=== PATIENT | female | born 1970 | race Caucasian/White ===

== ENCOUNTER 2017-01-19 12:27 | Emergency (ER) | payer OTHER ==
[~2017-01-19 12:27] MED LIST: ASPIRIN CHEWABL81 MG PO; CYANOCOBAL1000 MCG/M IM; LIPITOR20 MG PO; PLAVIX75 MG PO
[2017-01-19 14:12] LABS: AMPHETAMINES NEGATIVE (NEGATIVE); BARBITURATES NEGATIVE (NEGATIVE); BENZODIAZEPINES NEGATIVE (NEGATIVE); COCAINE NEGATIVE (NEGATIVE); MARIJUANA (THC) NEGATIVE (NEGATIVE); METHADONE NEGATIVE (NEGATIVE); TRICYCLIC ANTIDEPRESSANT NEGATIVE (NEGATIVE)
== END 2017-01-19 16:01 | disposition home or self-care (01) ==
LOC: FER 12:27
PROVIDERS: Internal Medicine
DX: M94.0 Chondrocostal junction syndrome [Tietze] (principal); I10 Essential (primary) hypertension; F17.210 Nicotine dependence, cigarettes, uncomplicated; Z86.73 Personal history of transient ischemic attack (TIA), and cerebral infarction without residual deficits; Z79.01 Long term (current) use of anticoagulants
CPT/HCPCS: 71120; 80305; 93005; J1885; J2270

== ENCOUNTER 2020-09-10 18:29 | Emergency (ER) | payer OTHER ==
[~2020-09-10 18:29] MED LIST changes: +ACETAMINOPHEN325 MG PO; +ALLEGRA ALLERG180 MG PO; +AMOXICILLIN500 MG PO; +BACTRIM DS TAB1 EACH PO; +DICLOFENAC POTA50 MG PO; +ELIQUIS2.5 MG PO; +ELIQUIS5 MG PO; +FAMOTIDINE40 MG PO; +FLONASE ALLER15.8 ML; +FOLBIC RF TABL1 EACH PO; +FOLIC ACID 0.8 MG PO; +HCTZ12.5 MG PO; +ILOTYCIN1 GM OD; +IMITREX50 MG PO; +K-DUR20 MEQ PO; +LASIX40 MG PO; +MEDROL 4MG DOSEP4 MG PO; +NORCO 5-325 TA1 EACH PO; +NORVASC5 MG PO; +PEPCID AC20 MG PO; +PERCOCET 5-3251 EACH PO; +PRILOSEC20 MG PO; +PROTONIX 40MG T40 MG PO; +PROTONIX20 MG PO; +VALSARTAN40 MG PO; +VENTOLIN HFA IN18 GM PO; +VITAMIN B-121000 MC4 PO; +VITAMIN B-121000 MCG PO; +ZOFRAN4 MG PO; +ZOFRAN8 MG PO
[2020-09-10 19:18] LABS: ALBUMIN 3.6 g/dL (3.4-5.0); BILIRUBIN - TOTAL 0.2 mg/dL (0.2-1.0); BUN/CREAT RATIO (CALC) 16.7 RATIO; CREATININE 0.6 mg/dL (0.51-0.95); GLOBULIN (CALCULATION) 3.9 g/dL; POTASSIUM 3.1 mmol/L (3.5-5.1); TOTAL PROTEIN 7.5 g/dL (6.4-8.2)
[2020-09-10 19:24] LABS: BASOPHIL 0.6 % (0-2); EOSINOPHIL 1.8 % (0-5); HCT 41.6 % (37.0-47.0); MCH 31.2 pg (25.0-31.0); MCHC 33.7 g/dL (32.0-36.0); MCV 92.7 fL (78.0-100.0); MPV 12.4 fL (6.0-9.5); NEUTROPHIL 48.2 % (41-80); NRBC 0; PLT 234 K/uL (150-400); RBC 4.49 M/uL (4.20-5.40); RDW 12.3 % (11.5-14.0)
[2020-09-10 19:28] LABS: INR 0.98 (0.9-1.2); PROTHROMBIN TIME 12.3 SECONDS (11.4-13.6); WBC 12.5 K/uL (4.0-10.5)
[2020-09-11 07:43] LABS: CORONAVIRUS 2019 SARS-COV-2 NEGATIVE (NEGATIVE); INFLUENZA A NAA NEGATIVE (NEGATIVE)
== END 2020-09-11 10:15 | disposition other institution (70) ==
LOC: FER 18:29
PROVIDERS: Emergency Medicine
DX: R07.89 Other chest pain (principal); R10.9 Unspecified abdominal pain; E87.6 Hypokalemia; R11.0 Nausea; I10 Essential (primary) hypertension; F17.200 Nicotine dependence, unspecified, uncomplicated; Z86.73 Personal history of transient ischemic attack (TIA), and cerebral infarction without residual deficits; Z90.49 Acquired absence of other specified parts of digestive tract; Z88.6 Allergy status to analgesic agent; Z88.8 Allergy status to other drugs, medicaments and biological substances; Z86.718 Personal history of other venous thrombosis and embolism; Z79.01 Long term (current) use of anticoagulants; Z20.822 Contact with and (suspected) exposure to COVID-19
CPT/HCPCS: 36415; 71045; 71275; 80048; 80053; 83690; 84484; 85025; 85379; 85610; 85730; 87339; 93005; J1170; J2270; J2405; J2550; Q9967; U0002

== ENCOUNTER → 2021-05-27 | Day surgery (SDC) | payer OTHER ==
[~2021-05-27] VITALS: Ht 152.4 cm; Wt 83.5 kg
[2021-05-27 10:24] LABS: HCT 42.3 % (37.0-47.0); HGB 14.4 g/dl (12.5-16.0); MCH 31.4 pg (25.0-31.0); MCV 92.4 fL (78.0-100.0); MPV 12.2 fL (6.0-9.5); RBC 4.58 M/uL (4.20-5.40); RDW 12.3 % (11.5-14.0); WBC 11.3 K/uL (4.0-10.5)
[2021-05-27 10:59] LABS: ALBUMIN 3.7 g/dL (3.4-5.0); BILIRUBIN - TOTAL 0.5 mg/dL (0.2-1.0); BUN/CREAT RATIO (CALC) 13.6 RATIO; CREATININE 0.66 mg/dL (0.51-0.95); GLOBULIN (CALCULATION) 3.6 g/dL; POTASSIUM 3.5 mmol/L (3.5-5.1); TOTAL PROTEIN 7.3 g/dL (6.4-8.2)
== END | disposition home or self-care (01) ==
LOC: FAS 09:17
PROVIDERS: Surgery
DX: K60.2 Anal fissure, unspecified (principal); I10 Essential (primary) hypertension; K21.9 Gastro-esophageal reflux disease without esophagitis; Z86.73 Personal history of transient ischemic attack (TIA), and cerebral infarction without residual deficits; F17.210 Nicotine dependence, cigarettes, uncomplicated; Z90.49 Acquired absence of other specified parts of digestive tract; Z90.710 Acquired absence of both cervix and uterus; Z88.4 Allergy status to anesthetic agent; Z88.8 Allergy status to other drugs, medicaments and biological substances; Z20.822 Contact with and (suspected) exposure to COVID-19
CPT/HCPCS: 36415; 80053; 93005; J1170; J2250; J3010; J7120; U0002

== ENCOUNTER → 2021-07-02 | Day surgery (SDC) | payer OTHER ==
[~2021-07-02] VITALS: Ht 152.4 cm; Wt 83.5 kg
[2021-07-02 08:13] LABS: HCT 43.7 % (37.0-47.0); HGB 15.1 g/dl (12.5-16.0); MCH 31.8 pg (25.0-31.0); MCHC 34.6 g/dL (32.0-36.0); MPV 12.2 fL (6.0-9.5); RBC 4.75 M/uL (4.20-5.40); RDW 11.9 % (11.5-14.0); WBC 10.3 K/uL (4.0-10.5)
[2021-07-02 08:48] LABS: ALBUMIN 4.1 g/dL (3.4-5.0); BILIRUBIN - TOTAL 0.7 mg/dL (0.2-1.0); BUN/CREAT RATIO (CALC) 17.2 RATIO; CREATININE 0.64 mg/dL (0.51-0.95); GLOBULIN (CALCULATION) 3.6 g/dL; POTASSIUM 3.4 mmol/L (3.5-5.1); TOTAL PROTEIN 7.7 g/dL (6.4-8.2)
== END | disposition home or self-care (01) ==
LOC: FAS 07:37
PROVIDERS: Surgery
DX: Z12.11 Encounter for screening for malignant neoplasm of colon (principal); K63.5 Polyp of colon; K62.89 Other specified diseases of anus and rectum; I10 Essential (primary) hypertension; I82.409 Acute embolism and thrombosis of unspecified deep veins of unspecified lower extremity; I26.99 Other pulmonary embolism without acute cor pulmonale; K21.9 Gastro-esophageal reflux disease without esophagitis; F17.200 Nicotine dependence, unspecified, uncomplicated; Z86.73 Personal history of transient ischemic attack (TIA), and cerebral infarction without residual deficits; Z79.01 Long term (current) use of anticoagulants; Z79.899 Other long term (current) drug therapy; Z90.49 Acquired absence of other specified parts of digestive tract; Z90.710 Acquired absence of both cervix and uterus; Z88.6 Allergy status to analgesic agent; Z88.8 Allergy status to other drugs, medicaments and biological substances
CPT/HCPCS: 36415; 80053; J1610; J2250; J2704; J7120